=== PATIENT | female | born 1975 | race Caucasian/White ===

== ENCOUNTER 2023-10-12 06:36 | Emergency (ER) | payer BC, SELFPAY ==
[2023-10-12 06:45] VITALS: BP 151/99
--- NOTE | 2023-10-12 07:22 | ED.GENMED ---
History of Present Illness
General
Chief Complaint: Abdominal Symptoms
Source: patient
Exam Limitations: none
Time Seen by Provider: 10/12/23 07:02
Travel History
Have you had any contact with someone who has COVID-19?: No
Do you have any symptoms of coronavirus? Fever > 100 degrees, chills, cough, shortness of breath, sore throat, loss of taste or smell, muscle aches, or headache?: No
History of Present Illness
History of Present Illness:
48-year-old female presents with urinary symptoms including burning left lower quadrant abdominal pain. She was found to have another UTI and started on cefprozil yesterday. This is the first time she had that medicine. She had a last evening she
woke up this morning early with abdominal pain vomiting and diarrhea. She has a history of UTIs as well as kidney stones. She has had multiple UTIs since April. She has been receiving Bactrim every time she has had a UTI which resolved however
several weeks later she was getting another urinary tract infection. She denies any measurable fever. She has known diverticulosis but has never had diverticulitis. No other complaints at this time. She recently did see her flavor maker who did
annual checkup as well as STD checks all of which were negative.
Past History
Past History
ED Past Medical History: GERD, HTN and Other (kidney stones)
ED Past Surgical History: Gynecological
Social History
Tobacco: Non-smoker
Alcohol: None
Drug: None
Personal:
Living: with family
Employment: Employed
Family History
Family History: Other (Noncontributory)
Phy Exam
Physical Exam
Physical Exam:
General: Well-appearing female no acute respiratory distress
HEENT: Normocephalic atraumatic
Heart: Regular rate and rhythm no murmurs
Lungs: Clear no wheeze or rales
Abdomen is soft tender to the left lower quadrant and suprapubic area. Mild guarding no rebound tenderness no costovertebral angle tenderness normal bowel sounds nondistended
Extremities: No cyanosis
Skin: Warm no rash
Course
Orders/Labs/Results
Orders:
Orders
10/12/23 07:20
0.9% Sodium Chloride 1000 ml [Nss] 1,000 ml IV BOLUS
Ketorolac [Toradol] 15 mg IV NOW STA
Ondansetron Injectable [Zofran] 4 mg IV NOW STA
Test Result ONCE
10/12/23 07:21
CT Abd/pelvis W Iv Cont Urgent
Comment:
Reason For Exam: llq pain, vomiting
10/12/23 07:28
Complete Blood Count/With Diff Urgent
Comprehensive Metabolic Panel Urgent
HCG, Serum Qualitative Screen Urgent
Lyme Progressive Urgent
10/12/23 08:50
Urinalysis Reflex To Culture Urgent
Date Specimen was Collected: 10/12/23
Time Specimen was Collected: 08:49
Urine Microscopic Reflex Cult Urgent
10/12/23 10:40
Add On- LAB Urgent
Tests Added?: lyme progressive
10/12/23 10:45
COVID-19 Antigen Urgent
Source: Nasal Swab
Influenza A+B Rapid Molecular Urgent
TRENA Source: Nasal Swab
Specimen Description:
10/12/23 11:55
Ketorolac [Toradol] 15 mg IV NOW STA
Ondansetron Injectable [Zofran] 4 mg IV NOW STA
Abnormal Lab Results
10/12/23 10/12/23
07:28 08:50
MPV 10.7 H fL
(7.4-10.4)
Absolute Neuts (auto) 8.5 H 10^3/uL
(1.4-6.5)
Absolute Lymphs (auto) 0.3 L 10^3/uL
(1.2-3.4)
Neutrophils % 91.9 H %
(42.2-75.2)
Lymphocytes % 2.7 L %
(20.5-51.1)
Glucose 137 H mg/dl
(70-99)
Leukocyte Esterase Rfl Trace A
(Negative)
10/12/23 07:28
10/12/23 07:28
Vital Signs
Initial and Last Documented VS:
Initial Vital Signs
Temp Pulse Resp BP Pulse Ox
99.3 F 98 26 151/99 98
10/12/23 06:45 10/12/23 06:45 10/12/23 06:45 10/12/23 06:45 10/12/23 06:45
Last Documented Vital Signs
Temp Pulse Resp BP Pulse Ox
99.3 F 77 16 139/87 96
10/12/23 06:45 10/12/23 12:37 10/12/23 12:37 10/12/23 12:37 10/12/23 12:37
MDM/Problems Addressed
Differential Diagnosis Includes:
Lower abdominal pain nausea vomiting diarrhea with urinary symptoms. Question possible adverse reaction to recent antibiotic initiation versus UTI versus diverticulitis versus kidney stone
Check labs. Treat with fluids Toradol Zofran. CT pending
*Critical Care Note
Total Time (30-74mins, 75-104mins- exclusive of procedures): Not Applicable
Update Note
Update Note:
Workup here negative. COVID and flu negative. Urinalysis without infection. CT negative. Question possible viral illness given the vomiting and diarrhea. She was hydrated here. Stable for discharge
ED Attending Note
-
Portions of this chart may have been created with voice recognition software.� Occasional wrong word or��sound alike� substitutions may have occurred due to the inherent limitations of voice recognition software.
Discharge Plan
Departure
Patient Disposition: Home (Routine Discharge)
Date of Disposition: 10/12/23
Time of Disposition: 13:39
Patient with high blood pressure during this ER visit?: No
Discharge Problem:
Abdominal pain
Instructions: Abdominal Pain
Prescriptions:
No Action
magnesium oxide 400 MG tablet
400 mg PO DAILY
tamsulosin 0.4 MG capsule
0.4 mg PO DAILY 5 Days Qty: 5 0RF
loratadine 10 MG tablet
10 mg PO DAILY
metoprolol tartrate 25 MG tablet
12.5 mg PO BID
Referrals:
Linda Hart CRNP [Family Provider] -
Activity Restrictions/Additional Instructions:
Please return here for worsening symptoms otherwise follow-up with your flavor maker and urologist
Interventions
Interventions:
*Risk Screen - Suicide Last Done: 10/12/23 07:14
*General Assessment Last Done: 10/12/23 07:14
*Neglect/Abuse Screening Last Done: 10/12/23 07:14
*ED COVID-19 Vaccine History Last Done: 10/12/23 07:14
AK-Sqdyaq-Gunkespiqd Assessment Last Done: 10/12/23 07:14
Discharge Date and Time
Print Language: CZECH
[2023-10-12] MEDS: NSS 1000 IV (07:35)
[2023-10-12] MEDS: ZOFRAN 4 MG IV ×2 (07:36→12:03)
[2023-10-12] MEDS: TORADOL 15 MG IV ×2 (07:37→12:02)
[2023-10-12 07:41] LABS: % Basophils 0.2 % (0-2); % Eosinophils 0.6 % (0-6); % Immature Granulocytes 0.2 % (0-0.5); % Lymphocytes 2.7 % (20.5-51.1); % Monocytes 4.4 % (1.7-9.3); % Neutrophils 91.9 % (42.2-75.2); Absolute Eosinophils 0.1 10^3/uL (0-0.7); Absolute Lymphocytes 0.3 10^3/uL (1.2-3.4); Absolute Monocytes 0.4 10^3/uL (0.1-0.6); Absolute Neutrophils 8.5 10^3/uL (1.4-6.5); Hematocrit 37.8 % (37.0-47.0); Hemoglobin 13.1 g/dL (12.0-16.0); Mean Corp Hgb Conc. 34.7 g/dL (33.0-37.0); Mean Corpuscular Hgb 29.9 pg (27.0-31.0); Mean Corpuscular Volume 86.3 fL (81.0-99.0); Mean Platelet Volume 10.7 fL (7.4-10.4); Nucleated Red Blood Cells % 0 %; Platelet Count 196 10^3/uL (130-400); Red Blood Cell Count 4.38 10^6/uL (4.20-5.40); Red Cell Dist. Width 12.9 % (11.5-14.5); White Blood Cell Count 9.3 10^3/uL (4.8-10.8)
[2023-10-12 07:50] LABS: HCG, Serum Qualitative Screen Negative
[2023-10-12 07:53] LABS: ALT (SGPT) 15 U/L (0-35); AST (SGOT) 20 U/L (14-36); Albumin 4.3 g/dl (3.5-5.0); Alkaline Phosphatase 58 U/L (38-126); Blood Urea Nitrogen 17 mg/dl (7-17); Calcium 9.2 mg/dl (8.4-10.2); Carbon Dioxide 22 mmol/L (22-30); Chloride 107 mmol/L (98-107); Glucose 137 mg/dl (70-99); Potassium 3.8 mmol/L (3.5-5.1); Sodium 136 mmol/L (135-145); Total Bilirubin 0.7 mg/dl (0.2-1.3); Total Protein 6.7 g/dl (6.3-8.2); eGFR > 60.00
[2023-10-12 08:59] VITALS: BP 148/72
[2023-10-12 09:07] LABS: Urine Albumin Negative (Neg - Trace); Urine Bilirubin Negative (Negative); Urine Character Clear (Clear); Urine Color Yellow; Urine Glucose Negative (Negative); Urine Ketone Negative (Negative); Urine Leukocyte Trace (Negative); Urine Nitrite Negative (Negative); Urine Occult Blood Negative (Negative); Urine Specific Gravity 1.015 (<1.030); Urine Urobilinogen Negative (Neg - 1+)
[2023-10-12 10:44] LABS: Urine Amorphous Seen; Urine Mucus Few; Urine Red Blood Cell 0-2 /HPF (0-2); Urine White Cell 0-2 /HPF (0-5)
[2023-10-12 10:54] VITALS: BP 135/81
[2023-10-12 11:11] LABS: COVID-19 Antigen Negative (Negative)
[2023-10-12 12:37] VITALS: BP 139/87
[2023-10-12 13:45] VITALS: BP 128/81
[2023-10-14 12:58] LABS: Lyme Antibody Screen, EIA Negative (Negative)
== END 2023-10-12 13:50 | disposition home or self-care (01) ==
LOC: EMR 06:36
PROVIDERS: Physician Assistant; EMERGENCY PHYSICIAN Emergency Medicine; FAMILY PHYSICIAN Nurse Practitioner Adult Health
DX: R10.32 Left lower quadrant pain (principal); R11.10 Vomiting, unspecified; R19.7 Diarrhea, unspecified; N39.0 Urinary tract infection, site not specified; Z11.52 Encounter for screening for COVID-19; K57.90 Diverticulosis of intestine, part unspecified, without perforation or abscess without bleeding; Z87.440 Personal history of urinary (tract) infections; Z87.442 Personal history of urinary calculi; Z88.1 Allergy status to other antibiotic agents
CPT/HCPCS: 99285; 96375 ×2; 96374; 96376; 96361; 74177; 80053; 81003; 81015; 84703; 85025; 86618; 87502; 87811; Q9967

== ENCOUNTER 2023-11-20 12:22 | Emergency (ER) | payer BC, SELFPAY ==
[2023-11-20] VITALS (7 sets, daily range): BP systolic 125–151; BP diastolic 73–98
[2023-11-20 13:10] LABS: % Basophils 0.5 % (0-2); % Eosinophils 0.8 % (0-6); % Immature Granulocytes 0.8 % (0-0.5); % Lymphocytes 26.4 % (20.5-51.1); % Monocytes 4.6 % (1.7-9.3); % Neutrophils 66.9 % (42.2-75.2); Absolute Basophils 0.1 10^3/uL (0-0.2); Absolute Eosinophils 0.1 10^3/uL (0-0.7); Absolute Immature Granulocytes 0.1 10^3/uL (0-0.05); Absolute Lymphocytes 2.6 10^3/uL (1.2-3.4); Absolute Monocytes 0.5 10^3/uL (0.1-0.6); Absolute Neutrophils 6.7 10^3/uL (1.4-6.5); Hematocrit 41.8 % (37.0-47.0); Hemoglobin 13.4 g/dL (12.0-16.0); Mean Corp Hgb Conc. 32.1 g/dL (33.0-37.0); Mean Corpuscular Hgb 29.1 pg (27.0-31.0); Mean Corpuscular Volume 90.9 fL (81.0-99.0); Mean Platelet Volume 10.8 fL (7.4-10.4); Nucleated Red Blood Cells % 0 %; Platelet Count 227 10^3/uL (130-400); Red Cell Dist. Width 13.3 % (11.5-14.5)
[2023-11-20 13:23] LABS: ALT (SGPT) 13 U/L (0-35); AST (SGOT) 18 U/L (14-36); Albumin 4.8 g/dl (3.5-5.0); Alkaline Phosphatase 59 U/L (38-126); Blood Urea Nitrogen 18 mg/dl (7-17); Calcium 9.9 mg/dl (8.4-10.2); Carbon Dioxide 30 mmol/L (22-30); Chloride 102 mmol/L (98-107); Glucose 112 mg/dl (70-99); Potassium 4.3 mmol/L (3.5-5.1); Sodium 143 mmol/L (135-145); Total Bilirubin 0.5 mg/dl (0.2-1.3); Total Protein 7.6 g/dl (6.3-8.2); eGFR > 60.00
[2023-11-20 13:34] LABS: Troponin I < 0.012 ng/ml
--- NOTE | 2023-11-20 14:43 | ED.GENMED ---
History of Present Illness
General
Chief Complaint: Dizziness
Source: patient
Exam Limitations: none
Time Seen by Provider: 11/20/23 14:17
Nursing documentation reviewed up to this point in time: agreed with
Travel History
Have you had any contact with someone who has COVID-19?: No
Do you have any symptoms of coronavirus? Fever > 100 degrees, chills, cough, shortness of breath, sore throat, loss of taste or smell, muscle aches, or headache?: No
History of Present Illness
History of Present Illness:
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 Patient had dizziness for
the past several weeks starting the end of September. She was seen by her family doctor. She does have a history of vertigo years ago but this slightly different. She does report however at times it is worse with changing positions of her head if
she moves quickly. She was given a prescription for an MRI of the brain with contrast and also was scheduled to see vestibular therapy but she did not do either yet. She reports over the past several days however vertigo is getting worse she feels
very lightheaded her head feels heavy she is having difficulty concentrating .she feels wobbly when she walks and cannot think straight. She reports she 'just does not feel right.' She is not unsteady when she walks and does not fall but feels
that her'legs are weak.'
She denies any she is a headache. Denies any recent trauma heavy lifting. Denies any chiropractic and ablation.
She does report she has had issues with UTIs since April which is why she was on Bactrim. She has seen dermatology for Sanchez-Philip syndrome and symptoms have significantly improved. She is weaning off steroids currently.
She also reports over the past several months she has had issues with hot flashes and is in the process of following up with TRAINING DESIGNER.
Past History
Past History
ED Past Medical History: GERD, HTN and Other (kidney stones)
ED Past Surgical History: Gynecological
Social History
Tobacco: Non-smoker
Alcohol: None
Drug: None
Personal:
Living: with family
Employment: Employed
Family History
Family History: Other (Noncontributory)
Review of Systems
Review of Systems
Allergies reviewed?: Yes
All Other Systems: ROS reviewed and negative except as documented in HPI and ROS
Constitutional: Reports no symptoms; Denies fever, fatigue or chills
EENT: Reports no symptoms
Respiratory: Reports no symptoms
Cardiac: Reports no symptoms
ABD/GI: Reports no symptoms
Musculoskeletal: Reports no symptoms
Skin: Reports no symptoms
Neurological: Reports dizzy and other (feels off ); Denies headache
Psychiatric: Reports no symptoms
Phy Exam
General Physical Exam
General Presentation: no apparent distress
General age: appears stated age
General Skin: warm and dry
General Habitus: normal
General Mental: alert
General Hydration: appears well hydrated
Eye Exam
Eye Exam: PERRL, EOMI and other (No nystagmus bilaterally)
Eye Exam General: PERRL: bilateral and EOM intact: bilateral
Pupil Exam: Bilateral: round and reactive
Cardiovascular Exam
Cardiovascular Exam: regular rate/rhythm, no murmur and normal peripheral pulses
Pulmonary Exam
Pulmonary Exam: lungs clear and no respiratory distress
Neurological Exam
Neurological Exam: alert, oriented x3, no motor deficits, no sensory deficits, confused and other (Steady gait)
NIH Stroke Score
Level of Consciousness: 0 - Alert
LOC questions: 0-Answers both correctly
LOC Commands: 0-Performs both correctly
Best Gaze: 0-Normal
Visual Cote: 0=Normal, no visual loss
Facial palsy: 0=Normal, symmetrical
Motor - Right Arm: 0=No drift 10 seconds
Motor - Left Arm: 0=No drift 10 seconds
Motor - Right Le-No drift 5 seconds
Motor - Left Le-No drift 5 seconds
Limb Ataxia: 0-Absent
Sensation: 0-Normal
Best Language: 0-No aphasia
Dysarthria: 0-Normal
Extinction and Inattention: 0-No abnormality
Total Score:: 0
[place] Coma Scale
Eye Opening: Spontaneous
Verbal Response: Oriented
Motor Response: Obeys Commands
GCS Total Score: 15
Cerebellar
Cerebellar Function: normal finger to nose
Musculoskeletal Exam
Musculoskeletal Exam: full ROM
Course
Orders/Labs/Results
Orders:
Orders
11/20/23 12:28
ECG [Electrocardiogram (*1)] Urgent
Reason for Study: Vertigo / Dizzy
EKG- Treatment ONCE
11/20/23 12:58
Complete Blood Count/With Diff Urgent
Comprehensive Metabolic Panel Urgent
HCG, Serum Qualitative Screen Urgent
Comment: ADD
TSH Reflex To Free T4 Urgent
Comment: ADD
Troponin I Urgent
11/20/23 14:47
Add On- LAB Urgent
Tests Added?: serum qualitative HCG
CT Head W/o Iv Contrast Urgent
Comment:
Reason For Exam: dizziness
11/20/23 14:53
UA Reflex to Culture [Urinalysis Reflex To Culture] Urgent
Date Specimen was Collected: 11/20/23
Time Specimen was Collected: 14:48
Urine Microscopic Reflex Cult Urgent
Urine Culture Urgent
TRENA Source: U
Specimen Description:
Date Specimen was Collected: 11/20/23
Time Specimen was Collected: 14:48
11/20/23 16:36
Meclizine [Antivert] 25 mg PO NOW STA
11/20/23 16:37
Add On- LAB Urgent
Tests Added?: tsh with reflexive t4
Abnormal Lab Results
11/20/23 11/20/23
12:58 14:53
MCHC 32.1 L g/dL
(33.0-37.0)
MPV 10.8 H fL
(7.4-10.4)
Abs Immat Gran (auto) 0.1 H 10^3/uL
(0-0.05)
Absolute Neuts (auto) 6.7 H 10^3/uL
(1.4-6.5)
Immature Gran % 0.8 H %
(0-0.5)
BUN 18 H mg/dl
(7-17)
Glucose 112 H mg/dl
(70-99)
Leukocyte Esterase Rfl 1+ A
(Negative)
11/20/23 12:58
11/20/23 12:58
Vital Signs
Initial and Last Documented VS:
Initial Vital Signs
Temp Pulse Resp BP Pulse Ox
99.5 F 75 18 135/98 99
11/20/23 12:26 11/20/23 12:26 11/20/23 12:26 11/20/23 12:26 11/20/23 12:26
Last Documented Vital Signs
Temp Pulse Resp BP Pulse Ox
99.5 F 56 14 127/97 95
11/20/23 12:26 11/20/23 17:45 11/20/23 17:45 11/20/23 17:00 11/20/23 17:45
MDM/Problems Addressed
Differential Diagnosis Includes:
Not limited to dizziness, vertigo, dehydration, less likely UTI
MDM/Problems Addressed:
Patient is a 44-year-old female who has had intermittent dizziness since September seen by her family doctor has a history of vertigo but felt this was slightly different. Has a prescription for an MRI with contrast as well as vestibular therapy but
did not yet do this. She presents awake alert no acute distress complains of worsening dizziness.
On admission as documented she is recovering from Sanchez-Philip but has no rash on her lips and looks well in no acute distress this was from Bactrim she is no longer on Bactrim.
On exam patient is awake alert no acute distress with a normal neurologic exam ambulatory steady no nystagmus normal finger-nose. She was however given a dose of meclizine here and feels better much better than when she came in.
Her labs unremarkable .
CAT scan negative. Stable for discharge home with outpatient follow-up with family doctor and neurology. Discussed getting her MRI with contrast and vestibular therapy. Since meclizine improve symptoms will DC with a script.
Chronic conditions affecting care:
hx of vertigo
*Radiology
Radiology exam reviewed: radiology read reviewed
*Pulse Oximetry
Patient hypoxic: no
*Critical Care Note
Total Time (30-74mins, 75-104mins- exclusive of procedures): Not Applicable
ED Attending Note
-
Portions of this chart may have been created with voice recognition software.� Occasional wrong word or��sound alike� substitutions may have occurred due to the inherent limitations of voice recognition software.
Discharge Plan
Departure
Patient Disposition: Home (Routine Discharge)
Date of Disposition: 11/20/23
Time of Disposition: 18:12
Patient with high blood pressure during this ER visit?: Yes
Condition: Fair
Covid-19: Not Applicable
Discharge Problem:
Dizziness
Instructions: Dizziness, BLOOD PRESSURE
Prescriptions:
New
meclizine 25 mg tablet
25 mg PO TID PRN (Reason: dizziness) Qty: 10 0RF
No Action
magnesium oxide 400 MG tablet
400 mg PO DAILY
tamsulosin 0.4 MG capsule
0.4 mg PO DAILY 5 Days Qty: 5 0RF
loratadine 10 MG tablet
10 mg PO DAILY
metoprolol tartrate 25 MG tablet
12.5 mg PO BID
ondansetron 4 mg tablet,disintegrating
4 mg PO Q8H PRN (Reason: nausea and vomiting) Qty: 10 0RF
Referrals:
Vernon Torres MD [Active] -
Linda Hart CRNP [Family Provider] -
Activity Restrictions/Additional Instructions:
As discussed a prescription for meclizine was sent to pharmacy take as directed as needed. Close follow-up with family doctor next several days as well as neurology. Call neurology tomorrow to make an appointment. Follow-up with your outpatient
MRI and vestibular therapy
Interventions
Interventions:
*Risk Screen - Suicide Last Done: 11/20/23 15:05
*General Assessment Last Done: 11/20/23 15:05
*Neglect/Abuse Screening Last Done: 11/20/23 15:05
ED- Fall Risk Assessment Last Done: 11/20/23 15:05
*ED COVID-19 Vaccine History Last Done: 11/20/23 12:26
ED- Neurological Assessment Last Done: 11/20/23 14:45
ED- Cardiac Assessment Last Done: 11/20/23 14:45
Discharge Date and Time
Print Language: SYRIAN
[2023-11-20 15:20] LABS: Urine Albumin Negative (Neg - Trace); Urine Bilirubin Negative (Negative); Urine Character Clear (Clear); Urine Color Yellow; Urine Glucose Negative (Negative); Urine Ketone Negative (Negative); Urine Leukocyte 1+ (Negative); Urine Nitrite Negative (Negative); Urine Occult Blood Negative (Negative); Urine Urobilinogen Negative (Neg - 1+)
[2023-11-20 16:09] LABS: Urine Red Blood Cell 0-2 /HPF (0-2)
[2023-11-20 16:10] LABS: Urine White Cell 0-2 /HPF (0-5)
[2023-11-20] MEDS: ANTIVERT 25 MG PO (16:40)
[2023-11-20 17:03] LABS: HCG, Serum Qualitative Screen Negative
[2023-11-20 17:45] LABS: TSH Reflex To Free T4 1.18 uIU/ml (0.47-4.68)
== END 2023-11-20 18:29 | disposition home or self-care (01) ==
LOC: EMR 12:22
PROVIDERS: Emergency Medicine; Nurse Practitioner; EMERGENCY PHYSICIAN Emergency Medicine; FAMILY PHYSICIAN Nurse Practitioner Adult Health
DX: R42 Dizziness and giddiness (principal); I10 Essential (primary) hypertension
CPT/HCPCS: 99285; 70450; 80053; 81003; 81015; 84443; 84484; 84703; 85025; 87086; 93005

== ENCOUNTER → 2023-12-20 13:43 | Outpatient (REF) | payer BC, SELFPAY | LOC: MRI 3T 13:43 | PROVIDERS: ATTENDING PHYSICIAN Nurse Practitioner Adult Health | DX: R42 Dizziness and giddiness (principal) | CPT/HCPCS: 70553; A9575 ==

== ENCOUNTER 2025-02-11 11:09 | Emergency (ER) | payer BC, SELFPAY ==
[2025-02-11 11:15] VITALS: BP 142/90
--- NOTE | 2025-02-11 13:00 | ED.GENMED ---
History of Present Illness
General
Chief Complaint: Allergic Reaction
Source: patient
Time Seen by Provider: 02/11/25 12:50
History of Present Illness
History of Present Illness:
49-year-old female presents to the emergency room concerned she is having allergic reaction because she has hoarseness of her voice and subjective swelling of her face. She believes she had a reaction to something she ate last night. After eating
bread last night she developed some swelling about her eyes and some congestion. No fever or chills. She denies any shortness of breath. Patient had swelling around her eyes a couple weeks ago which her family doctor thought might be an allergic
reaction. She had taken Benadryl at that time but was advised not to take Benadryl by her primary care doctor.
Past History
Past History
ED Past Medical History: GERD, HTN and Other (kidney stones)
ED Past Surgical History: Gynecological
Social History
Tobacco: Non-smoker
Alcohol: None
Drug: None
Personal:
Living: with family
Employment: Employed
Family History
Family History: Other (Noncontributory)
Phy Exam
Physical Exam
Physical Exam:
General: Awake, Alert, Oriented X3. No acute distress.
Vitals: unremarkable
Head: Atraumatic
Eyes: Pupils equal, EOMI
Throat: Airway intact, no exudates
Neck: Trachea midline
Lungs: Clear and equal b/l
Heart: Regular rate, no murmurs
Abd: Soft, Nontender, No pulsatile mass
Neuro: Nonfocal
Skin: Warm, dry, no rash
Extremities: pulses equal b/l, no edema
Course
Orders/Labs/Results
Orders:
Orders
02/11/25 11:20
Electrocardiogram (*1) Urgent
Reason for Study: Chest Pain
EKG- Treatment ONCE
02/11/25 13:19
COVID-19 Antigen Urgent
Source: Nasal Swab
Influenza A+B Rapid Molecular Urgent
TRENA Source: Nasal Swab
Specimen Description:
Vital Signs
Initial and Last Documented VS:
Initial Vital Signs
Temp Pulse Resp BP Pulse Ox
97.7 F 84 20 142/90 98
02/11/25 11:15 02/11/25 11:15 02/11/25 11:15 02/11/25 11:15 02/11/25 11:15
Last Documented Vital Signs
Temp Pulse Resp BP Pulse Ox
97.7 F 74 16 142/90 99
02/11/25 11:15 02/11/25 15:39 02/11/25 15:39 02/11/25 11:15 02/11/25 15:39
MDM/Problems Addressed
Differential Diagnosis Includes:
Viral illness, allergic reaction, other adverse medication
MDM/Problems Addressed:
Patient presents complaining of what she feels is an allergic reaction. I do not observe any significant angioedema or facial swelling. She does not have an urticarial rash. Will test for COVID or other viral illness which might give her a hoarse
voice and some congestion. Offered a dose of Benadryl but patient does not want to take that. She already took steroids today. Did not believe there is any acute treatment required at this point.
*Pulse Oximetry
SaO2: 98
Oxygen Mode of Delivery: Room air
Patient hypoxic: no
*EKG
Interpreted by ED Provider?: Yes
Heart Rate: 76
Rate: normal
Rhythm: sinus
[place]: normal axis
Interval: normal interval
QRS Pattern: normal QRS
Ischemia: no ischemia
*Capsule Maker Interpretation
Rate: normal
Interpretation: normal
Heart Rate: 76
Rhythm: sinus
*Critical Care Note
Total Time (30-74mins, 75-104mins- exclusive of procedures): Not Applicable
ED Attending Note
-
Portions of this chart may have been created with voice recognition software.� Occasional wrong word or��sound alike� substitutions may have occurred due to the inherent limitations of voice recognition software.
Discharge Plan
Departure
Patient Disposition: Home (Routine Discharge)
Date of Disposition: 02/11/25
Time of Disposition: 15:16
Patient with high blood pressure during this ER visit?: Yes
Condition: Good
Discharge Problem:
Allergic reaction
Instructions: Allergic reaction - ED (DC)
Prescriptions:
No Action
magnesium oxide 400 MG tablet
400 mg PO DAILY
tamsulosin 0.4 MG capsule
0.4 mg PO DAILY 5 Days Qty: 5 0RF
loratadine 10 MG tablet
10 mg PO DAILY
metoprolol tartrate 25 MG tablet
12.5 mg PO BID
ondansetron 4 mg tablet,disintegrating
4 mg PO Q8H PRN (Reason: nausea and vomiting) Qty: 10 0RF
meclizine 25 mg tablet
25 mg PO TID PRN (Reason: dizziness) Qty: 10 0RF
Referrals:
Linda Hart CRNP [Family Provider, General]
Interventions
Interventions:
*Risk Screen - Suicide Last Done: 02/11/25 11:15
*General Assessment Last Done: 02/11/25 11:15
*Neglect/Abuse Screening Last Done: 02/11/25 11:15
*ED- Fall Risk Assessment Last Done: 02/11/25 15:40
*Nursing Disposition Last Done: 02/11/25 15:40
ED- Cardiac Assessment Last Done: 02/11/25 13:22
ED- Pulmonary Assessment Last Done: 02/11/25 13:22
ED-Skin Assessment Last Done: 02/11/25 13:22
Discharge Date and Time
Discharge Date/Time: 02/11/25 15:40
Print Language: SLOVENIAN
[2025-02-11 13:56] LABS: COVID-19 Antigen Negative (Negative)
== END 2025-02-11 15:40 | disposition home or self-care (01) ==
LOC: EMR 11:09
PROVIDERS: EMERGENCY PHYSICIAN Emergency Medicine; FAMILY PHYSICIAN Nurse Practitioner Adult Health
DX: T78.40XA Allergy, unspecified, initial encounter (principal); X58.XXXA Exposure to other specified factors, initial encounter; R49.0 Dysphonia; I10 Essential (primary) hypertension; Z11.52 Encounter for screening for COVID-19
CPT/HCPCS: 99284; 87502; 87811; 93005

== ENCOUNTER 2025-02-26 13:18 | Emergency (ER) | payer BC, SELFPAY ==
[2025-02-26 13:19] VITALS: BP 142/98
[2025-02-26 13:47] VITALS: BMI 32.7
--- NOTE | 2025-02-26 14:09 | ED.GENMED ---
History of Present Illness
General
Chief Complaint: Abdominal Symptoms
Source: patient
Exam Limitations: none
Time Seen by Provider: 02/26/25 13:44
History of Present Illness
History of Present Illness:
49yoF with a history of hypertension, IBS-D, PVCs on metoprolol, migraines, and kidney stones presenting for evaluation of abdominal pain. Symptoms began 3 days ago with pain throughout her lower abdomen, subjective fevers, and body aches. She
initially thought she had the flu. Her pain has now migrated and is located in the left lower quadrant and she feels like there is a 'water balloon' in that area. She also is constipated which is very unusual for her. She reports nausea but
denies any vomiting. She had a colonoscopy about 7 to 8 years ago which showed diverticulosis. Prior abdominal surgeries include an exploratory laparoscopy and a ovarian cystectomy.
Past History
Past History
ED Past Medical History: GERD, HTN and Other (kidney stones)
ED Past Surgical History: Gynecological
Social History
Tobacco: Non-smoker
Alcohol: None
Drug: None
Personal:
Living: with family
Employment: Employed
Family History
Family History: Other (Noncontributory)
Phy Exam
General Physical Exam
General Presentation: well appearing and no apparent distress
General Skin: warm and dry
General Habitus: normal
General Mental: alert
ENT Exam
ENT Exam: normocephalic
Cardiovascular Exam
Cardiovascular Exam: regular rate/rhythm
Pulmonary Exam
Pulmonary Exam: lungs clear, no respiratory distress, no rales, no crackles, no rhonchi and no wheezing
Gastrointestinal Exam
Gastrointestinal Exam: soft, non distended and other (+LLQ tenderness. Abdomen soft, non-distended. No rebound or guarding.)
Neurological Exam
Neurological Exam: alert
[place] Coma Scale
Eye Opening: Spontaneous
Verbal Response: Oriented
Motor Response: Obeys Commands
GCS Total Score: 15
Skin Exam
Skin Exam: normal color and warm/dry
Psychiatric Exam
Psychiatric Exam: normal mood/affect
Course
Orders/Labs/Results
Orders:
Orders
02/26/25 14:01
CT Abd/pelvis W Iv Cont Urgent
Comment:
Reason For Exam: LLQ pain
0.9% Sodium Chloride 1000 ml [Nss] 1,000 ml IV BOLUS
Test Result ONCE
02/26/25 14:12
COVID-19 Antigen Urgent
Source: Nasal Swab
Complete Blood Count/With Diff Urgent
Comprehensive Metabolic Panel Urgent
HCG, Serum Qualitative Screen Urgent
Lipase Urgent
Influenza A+B Rapid Molecular Urgent
TRENA Source: Nasal Swab
Specimen Description:
02/26/25 14:23
Ondansetron Injectable [Zofran] 4 mg IV NOW STA
02/26/25 15:19
Ketorolac [Toradol] 15 mg IV NOW STA
02/26/25 16:04
Urinalysis Reflex To Culture Urgent
Date Specimen was Collected: 02/26/25
Time Specimen was Collected: 14:31
Urine Microscopic Reflex Cult Urgent
Urine Culture Urgent
TRENA Source: U
Specimen Description:
Date Specimen was Collected: 02/26/25
Time Specimen was Collected: 14:31
Abnormal Lab Results
02/26/25 02/26/25
14:12 16:04
WBC 12.8 H 10^3/uL
(4.8-10.8)
MPV 11.3 H fL
(7.4-10.4)
Abs Immat Gran (auto) 0.1 H 10^3/uL
(0-0.05)
Absolute Neuts (auto) 9.9 H 10^3/uL
(1.4-6.5)
Absolute Monos (auto) 1.2 H 10^3/uL
(0.1-0.6)
Neutrophils % 77.0 H %
(42.2-75.2)
Lymphocytes % 11.9 L %
(20.5-51.1)
Monocytes % 9.6 H %
(1.7-9.3)
Chloride 109 H mmol/L
(98-107)
Glucose 100 H mg/dl
(70-99)
Leukocyte Esterase Rfl 2+ A
(Negative)
Urine WBC (Reflex) 26-30 A /HPF
(0-5)
Urine Bacteria (Reflex) Moderate A
(Negative)
02/26/25 14:12
02/26/25 14:12
Vital Signs
Initial and Last Documented VS:
Initial Vital Signs
Temp Pulse Resp BP Pulse Ox
99.3 F 100 18 142/98 96
02/26/25 13:19 02/26/25 13:19 02/26/25 13:19 02/26/25 13:19 02/26/25 13:19
Last Documented Vital Signs
Temp Pulse Resp BP Pulse Ox
99.3 F 81 17 136/89 97
02/26/25 13:19 02/26/25 16:30 02/26/25 16:30 02/26/25 16:02 02/26/25 16:30
MDM/Problems Addressed
Differential Diagnosis Includes:
49yoF here with LLQ pain and chills x 3 days. Temp 99.3 on arrival. Remainder of vitals stable. She is well-appearing in no acute distress. No signs of peritonitis on abdominal exam. Differential diagnosis includes but is not limited to:
Diverticulitis, colitis, viral illness, less likely pyelonephritis
Initial ED plan: Abdominal labs, COVID/flu swab, UA, and CT abdomen. IV Zofran, Toradol, and fluid bolus for symptoms.
*Pulse Oximetry
SaO2: 96
Oxygen Mode of Delivery: Room air
Patient hypoxic: no (96%)
*Critical Care Note
Total Time (30-74mins, 75-104mins- exclusive of procedures): Not Applicable
Update Note
Update Note:
Imaging shows acute diverticulitis of the mid descending colon without perforation or abscess. There is also a large 2.6 cm staghorn calculus in the lower pole of the left kidney without associated perinephric stranding or hydronephrosis. White
count 12.8. Suspect symptoms are all related to diverticulitis. No indication for hospitalization. She was initiated on a course of Augmentin. Amoxicillin listed as an allergy although the reaction is diarrhea and is not a true allergy.
Supportive care discussed including clear liquid diet. She was advised to follow-up with her PCP and strict ED return precautions reviewed. Patient in agreement with plan and was discharged in stable condition.
ED Attending Note
-
Portions of this chart may have been created with voice recognition software.� Occasional wrong word or��sound alike� substitutions may have occurred due to the inherent limitations of voice recognition software.
Discharge Plan
Departure
Patient Disposition: Home (Routine Discharge)
Date of Disposition: 02/26/25
Time of Disposition: 16:50
Patient with high blood pressure during this ER visit?: Yes
Discharge Problem:
Acute diverticulitis
Instructions: Diverticulitis
Prescriptions:
New
amoxicillin-pot clavulanate 875-125 mg tablet
1 tab PO BID Qty: 20 0RF
No Action
magnesium oxide 400 MG tablet
400 mg PO DAILY
tamsulosin 0.4 MG capsule
0.4 mg PO DAILY 5 Days Qty: 5 0RF
loratadine 10 MG tablet
10 mg PO DAILY
metoprolol tartrate 25 MG tablet
12.5 mg PO BID
ondansetron 4 mg tablet,disintegrating
4 mg PO Q8H PRN (Reason: nausea and vomiting) Qty: 10 0RF
meclizine 25 mg tablet
25 mg PO TID PRN (Reason: dizziness) Qty: 10 0RF
Referrals:
Linda Hart CRNP [Family Provider, General]
Activity Restrictions/Additional Instructions:
Take antibiotics as prescribed. Eat a clear liquid diet for the next week.
Please follow-up with your family doctor next week. Return to the ER immediately with any worsening symptoms including severe pain, fevers, or if you do not improve in the next 72 hours.
You should also see your urologist for the large stone in the left kidney found on today's CT scan.
Interventions
Interventions:
*Risk Screen - Suicide Last Done: 02/26/25 17:15
*General Assessment Last Done: 02/26/25 13:47
*Neglect/Abuse Screening Last Done: 02/26/25 13:47
*ED- Fall Risk Assessment Last Done: 02/26/25 13:47
*ED COVID-19 Vaccine History Last Done: 02/26/25 13:47
*Nursing Disposition Last Done: 02/26/25 18:01
WS-Nhfhpf-Qtzersdyaf Assessment Last Done: 02/26/25 13:47
Discharge Date and Time
Discharge Date/Time: 02/26/25 18:02
Print Language: [id number]
[2025-02-26] MEDS: NSS 1000 IV (14:19)
[2025-02-26 14:21] VITALS: BP 153/88
[2025-02-26 14:23] LABS: Hematocrit 37.5 % (37.0-47.0); Hemoglobin 12.4 g/dL (12.0-16.0); Mean Corp Hgb Conc. 33.1 g/dL (33.0-37.0); Mean Corpuscular Volume 89.3 fL (81.0-99.0); Nucleated Red Blood Cells % 0 %; Platelet Count 172 10^3/uL (130-400); Red Cell Dist. Width 13.2 % (11.5-14.5)
[2025-02-26] MEDS: ZOFRAN 4 MG IV (14:31)
[2025-02-26 14:38] LABS: COVID-19 Antigen Negative (Negative)
[2025-02-26 14:39] LABS: HCG, Serum Qualitative Screen Negative
[2025-02-26 14:43] LABS: ALT (SGPT) 12 U/L (0-35); AST (SGOT) 18 U/L (14-36); Albumin 4.0 g/dl (3.5-5.0); Alkaline Phosphatase 66 U/L (38-126); Blood Urea Nitrogen 7 mg/dl (7-17); Calcium 9.1 mg/dl (8.4-10.2); Carbon Dioxide 24 mmol/L (22-30); Chloride 109 mmol/L (98-107); Estimated Creatinine Clearance > 125 ml/min; Glucose 100 mg/dl (70-99); Lipase 34 U/L (23-300); Potassium 3.9 mmol/L (3.5-5.1); Sodium 139 mmol/L (135-145); Total Protein 6.5 g/dl (6.3-8.2); eGFR > 60.00
[2025-02-26 15:00] VITALS: BP 136/83
[2025-02-26] MEDS: TORADOL 15 MG IV (15:56)
[2025-02-26 16:02] VITALS: BP 136/89
[2025-02-26 16:30] LABS: Urine Character Slightly Cloudy (Clear)
[2025-02-26 17:34] LABS: Urine Red Blood Cell 0-2 /HPF (0-2); Urine White Cell 26-30 /HPF (0-5)
== END 2025-02-26 18:02 | disposition home or self-care (01) ==
LOC: EMR 13:18
PROVIDERS: Physician Assistant; EMERGENCY PHYSICIAN Student in an Organized Health Care Education/Training Program; FAMILY PHYSICIAN Nurse Practitioner Adult Health
DX: K57.32 Diverticulitis of large intestine without perforation or abscess without bleeding (principal); I10 Essential (primary) hypertension; Z87.442 Personal history of urinary calculi
CPT/HCPCS: 96374; 96375; 96361; 99284; 74177; 80053; 81003; 81015; 83690; 84703; 85025; 87077; 87086; 87186; 87502; 87811; Q9967

== ENCOUNTER → 2025-06-23 10:14 | Outpatient (REF) | payer BC, SELFPAY | LOC: HWRAD 10:14 | PROVIDERS: ATTENDING PHYSICIAN Surgery; FAMILY PHYSICIAN Nurse Practitioner Adult Health | DX: N20.0 Calculus of kidney (principal) | CPT/HCPCS: 74176 ==